=== PATIENT | female | born 1950 | race Caucasian/White ===

== ENCOUNTER → 2016-11-18 | Outpatient (CLI) | payer OTHER ==
--- NOTE | 2016-11-18 16:28 | CT ---
EXAM DESCRIPTION: Abdomen and pelvis CT. CLINICAL HISTORY: Hematuria COMPARISON: None. TECHNIQUE: A volumetric CT with and without IV contrast was obtained during the portal venous phase. Images are displayed in multiplanar reconstructions. FINDINGS: GI: No dilated bowel, free air, or free fluid. Liver: The liver measures 19 cm in diameter. No evidence of hepatic mass. Portal vein is widely patent. Biliary: No calcified gallstones. Spleen: Splenomegaly. The spleen measures 14.7 cm in diameter. Pancreas: Unremarkable. Adrenal Glands: No significant nodularity. Kidneys: No renal stone noted. A few small renal cysts are noted. The kidneys are of normal size. No abnormal enhancing mass noted. Pelvic organs: Bilateral ureters and the urinary bladder unremarkable. Patient is status posthysterectomy. Bones: No suspicious lesion/fracture. Lymph nodes: No enlarged lymph nodes. Lung bases: Small pneumatoceles likely from previous infection seen within bilateral lung bases. Several of these were noted on the prior CT from 2008. IMPRESSION: No evidence of renal stone on today's study. No evidence of enhancing renal mass, ureteral mass or urinary bladder mass. Hepatosplenomegaly is noted. The spleen measures 14.7 cm in diameter. Electronically signed by: Wilman Zamorano MD 11/18/2016 16:26
== END | disposition home or self-care (01) ==
LOC: CT 14:27
PROVIDERS: ATTEND Urology
DX: R31.29 Other microscopic hematuria (principal)